=== PATIENT | female | born 2000 | race African-American/Black ===

== ENCOUNTER 2022-02-27 00:09 | Emergency (ER) | payer OTHER ==
[2022-02-27] MEDS ORDERED: Ondansetron PF 4 MG/2 ML Vial ONE (00:41)
[2022-02-27] MEDS ORDERED: Ketorolac Tromethamine 30 MG/ML VIAL ONE (00:41)
[2022-02-27 02:17] LABS: Bacteria/HPF None Seen HPF (None Seen); Bilirubin Negative (Negative); Blood, Urine 3+ (Negative); Clarity Clear (Clear); Glucose, Urine (Dipstick) Normal (Negative); Ketone, Urine 40 mg/dL (Negative); Leukocyte Negative Leu/uL (Negative); Nitrite Negative (Negative); Pregnancy Test - Urine (BHCG) Negative (Negative); Protein, Urine (Dipstick) Negative (Neg-Trace); Specific Gravity, Urine 1.028 (1.002-1.036); Squamous Epithelial 0-3 HPF (0-3); WBC/HPF 0-3 HPF (0-3)
[2022-02-27 02:18] LABS: Pregu Control Background? CLEAR/WHITE (CLR/WHITE); Pregu Control Bar Appear? YES (CONTROL BAR); Specific Gravity 1.028 (1.002-1.036)
== END 2022-02-27 02:31 | disposition home or self-care (01) ==
LOC: ERS 00:09
DX: R55 Syncope and collapse (principal)
CPT/HCPCS: 81003; 81015; 81025; 93005; 96374; 96375; J1885; J2405